=== PATIENT | male | born 1955 | race Caucasian/White ===

== ENCOUNTER → 2020-04-22 | Outpatient (CLI) | payer OTHER ==
--- NOTE | 2020-04-23 23:40 | ECWPNPC ---
PATIENT NAME: GALE RIVERA : 1955 GENDER: MALE VISIT DATE: 04/22/2020 DISCHARGE DATE: 04/22/20 0000 VISIT LOCKED DATE TIME: PHYSICIAN: TESHA CHOE RESOURCE: TESHA CHOE REASON FOR APPOINTMENT 1. BACK/ SHOULDER /ARTHRITIS HISTORY OF PRESENT ILLNESS GENERAL: 64-YEAR-OLD GENTLEMAN REFERRED BY PRIMARY CARE,ASHLEY MURPHY FOR CHRONIC GENERALIZED BACK PAIN THAT IS ARTHRITIC IN NATURE. REPORTS LONG HISTORY OF BACK PAIN. PAIN IS RELIEVED SOMEWHAT WITH TYLENOL WITH CODEINE BUT HE FEELS HE NEEDS SOMETHING STRONGER AND PRIMARY CARE WILL NOT PRESCRIBE THIS FOR HIM. PATIENT STATES HE DOES NOT WANT INJECTIONS BUT WOULD LIKE A REFERRAL TO A SURGEON. I MENTIONED USE OF NONNARCOTIC PAIN MEDICATION AND PATIENT STATES HE WILL NOT TAKE IT BECAUSE IT DOESN'T WORK. PATIENT BECAME ANGRY DUE TO THE FACT THAT HE DROVE HERE A LONG DISTANCE AND THAT WE DIDN'T HELP HIM. HE USED PROFANITIES HE LEFT THE CLINIC. NOTIFIED VFX ARTIST LISBETH MARIE. - - - -. FALL RISK SCREENING: SCREENING :TWO OR MORE FALLS WITH INJURY IN THE PAST YEAR PATIENT REPORTS MULTIPLE FALLS IN THE YEAR, FOLLOWED UP WITH PRIMARY CARE PROVIDER, PATIENT DENIES FRACTURES. PAIN SCREENING: PATIENT HAS A COMPLAINT OF ACUTE OR CHRONIC PAIN :YES LOCATION OF PAIN: LOW BACK, BOTH SHOULDERS, L SHOULDER > R SHOULDER, LOW BACK R> L INTENSITY OF PAIN (SCALE OF 1 TO 10):7 "WHEN IT ACTIVATES 10, STOPS ME IN MY TRACKS" WHAT DOES YOUR PAIN FEEL LIKE:ACHING, SHOOTING SHOULDER INTERMITTENT, WORSENED WITH ACTIVITY. DURATION:CONTINOUS, INTERMITTENT, AWAKENS FROM SLEEP PAIN IS INCREASED BY:ACTIVITIES PAIN IS DECREASED BY:USE OF PAIN MEDICATIONS PLAN/GOALS/TREATMENT/INTERVENTION/FOLLOW UP:SEE PLAN NURSING NOTE: - - - -. PAIN CENTER INTAKE QUESTIONS: DO YOU HAVE A HISTORY OF MRSA? :NO DO YOU TAKE A BLOOD THINNERS? :NO DO YOU HAVE ANY BLEEDING DISORDERS? :NO ANY NEW NUMBNESS OR WEAKNESS IN YOUR LEGS OR ARMS? :NO ANY PACEMAKER,DEFIBRILLATOR, OR DORSAL COLUMN STIMULATOR? :NO DO YOU HAVE ANY RASHES OR OPEN SORES? :NO ARE YOU ALLERGIC TO IV DYE? :NO ARE YOU DIABETIC? :NO ANY NEW PROBLEMS WITH YOUR MEDICATIONS? :NO HAVE YOU RECEIVED A VACCINE IN THE PAST 30 DAYS? :NO DO YOU PLAN TO RECEIVE A VACCINE IN THE NEXT 21 DAYS? :NO DO YOU NEED ANY PRESCRIPTION? :NO DO YOU TAKE ANY IMMUNOSUPPRESSIVE MEDICATIONS? :NO CURRENT MEDICATIONS TAKING ERGOCALCIFEROL 16674 IU TABLET DIRECTED ORALLY ONCE A WEEK TAKING OMEPRAZOLE 20 MG CAPSULE DELAYED RELEASE 1 CAPSULE 30 MINUTES BEFORE MORNING MEAL ORALLY DAILY TAKING ACETAMINOPHEN-CODEINE #3 300-30 MG TABLET 1 TABLET NEEDED ORALLY EVERY 6 HRS TAKING COQ-10 100 MG CAPSULE 1 CAPSULE WITH A MEAL ORALLY ONCE A DAY TAKING ATIVAN 1 1MG TABLET PO ORAL QID PRN TAKING PROZAC 40 MG CAPSULE 1 CAPSULE ORALLY ONCE A DAY MEDICATION LIST REVIEWED AND RECONCILED WITH THE PATIENT PAST MEDICAL HISTORY THROAT CANCER, IN REMISSION ANXIETY WITH DEPRESSION DIABETES MELLITUS TYPE 2 VITAMIN D DEFICIENCY ARTHRITIS ACUTE RIGHT-SIDED LOW BACK PAIN WITH RIGHT SIDE SCIATICA CATARACTS ZENY WITH CPAP ALLERGIES STATINS (FOR ALLERGY USE ONLY): WORSENED PAIN - SIDE EFFECTS SURGICAL HISTORY FEEDING TUBE INPLANT 08/2018 RIGHT SHOULDER REPAIR X 4 FEEDING TUBE REMAOVAL 03/2019 EGD/COLONOSCOPY 02/2020 MULTIPLE KNEE SURGERIES NECK SURGERY 5-6 YEARS AGO LESION REMOVAL ON ABDOMEN FAMILY HISTORY FATHER: 89 YRS, DIAGNOSED WITH OTHER MALIGNANT NEOPLASM OF UNSPECIFIED SITE MOTHER: SIBLINGS: , OTHER MALIGNANT NEOPLASM OF UNSPECIFIED SITE IN 1 PATERNAL GRAND FATHER: , OTHER MALIGNANT NEOPLASM OF UNSPECIFIED SITE FATHER: THROAT CANCERMOTHER: ESTRANGED (). SOCIAL HISTORY GENERAL: TOBACCO USE ARE YOU A:FORMER SMOKER HOW LONG HAS IT BEEN SINCE YOU LAST SMOKED?> 10 YEARS MALES, AGE 65-75 WITH 5 PACK SMOKING HISTORY (100 CIGARETTES LIFETIME)NO VAPORNO E-CIGARETTENO LATEX QUESTIONNAIRE LATEX ALLERGY : HAVE YOU EVER DEVELOPED ANY TYPE OF REACTION AFTER HANDLING LATEX PRODUCTS SUCH RUBBER GLOVES, CONDOMS, DIAPHRAGMS, BALLOONS, SOCKS, OR UNDERWEAR?NO LATEX ALLERGY : HAVE YOU EVER DEVELOPED ANY TYPE OF REACTION DURING OR AFTER DENTAL APPOINTMENT, VAGINAL/RECTAL EXAMINATION, SURGICAL PROCEDURE, OR ANY OTHER EXPOSURE?NO LATEX RISK : HAVE YOU EVER HAD ANY DIFFICULTY BREATHING OR HIVES AFTER EATING OR HANDLING ANY FRUITS, OR VEGETABLES; SUCH KIWI, BANANAS, STONE FRUITS, OR CHESTNUTSNO LATEX RISK : DO YOU HAVE A PREVIOUS PERSONAL HISTORY OF MORE THAN NINE SURGERIES, SPINA BIFIDA, OR REPEATED CATHERIZATIONS? NO LATEX RISK : ARE YOU FREQUENTLY EXPOSED TO LATEX PRODUCTS IN YOUR OCCUPATION?NO DATE ASKED : 04/19/2020 ALCOHOL USE: NO. RECREATIONAL DRUG USE DRUG USE?NO CHRISTIAN CHRISTIAN NO ORTHODOX BELIEFS THAT WOULD IMPACT HEALTH CARE. LANGUAGE LANGUAGES SPOKEN:YI LEARNING BARRIERS / SPECIAL NEEDS BARRIERS TO LEARNING?NO HEARING IMPAIRED?NO VISION IMPAIRED?YES :CORRECTIVE LENSES COGNITIVELY IMPAIRED?NO READINESS TO LEARN?YES LEARNING PREFERENCES?YES :DEMONSTRATION/VERBAL INSTRUCTION, OTHER (PLEASE COMMENT) VISUAL LEARNING CAPABILITIES PRESENT?YES EMOTIONAL BARRIERS?NO SPECIAL DEVICES?YES :CANE THIRD HELPER NEEDED?NO OCCUPATION: DISABLED. MARITAL STATUS: . ADVANCE DIRECTIVE ADVANCE DIRECTIVE DISCUSSED WITH PATIENT:YES PATIENT REPORTS HAVING HCP [facility], HOSPITALIZATION/MAJOR DIAGNOSTIC PROCEDURE SURGERY RELATED VITAL SIGNS WT 249.2 LBS, HT 68 IN, BMI 37.89 INDEX, BP 158/84 MM HG, HR 63 /MIN, RR 18 /MIN, TEMP 97.5 F, OXYGEN SAT % 96, SAFE IN ENV? (Y/N) YES, REVIEWED BY: APA. CRUZ RN. EXAMINATION GENERAL EXAMINATION: CARDIAC-HEART RATE REGULAR MUSCULOSKELETAL-MUSCLE STRENGTH 5 OVER 5 LOWER EXTREMITIES. INSPECTION OF SPINE MILD TENDERNESS IN THE RIGHT LUMBAR PARASPINAL REGION OTHERWISE NONTENDER. FULL RANGE OF MOTION JOINT MOTION OF THE SPINE NOTED WITHOUT REPORTS OF INCREASED PAIN. ASSESSMENTS LOW BACK PAIN AT MULTIPLE SITES - M54.5 (PRIMARY) TREATMENT LOW BACK PAIN AT MULTIPLE SITES NOTES: NO FURTHER VISITS PER VFX ARTIST. OTHERS NOTES: 04/19/20 1020 NPC PAT COMPLETED. Kirit JACKSON WHEEL WORKER. PROCEDURE CODES FA211 ESTABILISHED PATIENT [facility] CHARGE DISPOSITION & COMMUNICATION ELECTRONICALLY SIGNED BY SKINNY MURO ON 04/23/2020 AT 01:28 PM EST DISCLAIMER : THIS IS A VISIT SUMMARY EXTRACTED FROM THE Assignment [employer] CHART. IT IS NOT A COPY OF THE Assignment [employer] PROGRESS NOTE. MTDD
== END ==
LOC: M PAIN 13:00
PROVIDERS: ATTEND Nurse Practitioner Family
DX: M54.41 Lumbago with sciatica, right side (principal); F41.9 Anxiety disorder, unspecified; F32.9 Major depressive disorder, single episode, unspecified; E11.9 Type 2 diabetes mellitus without complications; E55.9 Vitamin D deficiency, unspecified; G47.33 Obstructive sleep apnea (adult) (pediatric); H26.9 Unspecified cataract; Z87.891 Personal history of nicotine dependence; Z79.899 Other long term (current) drug therapy; Z88.8 Allergy status to other drugs, medicaments and biological substances